=== PATIENT | male | born 1950 | race Caucasian/White ===

== ENCOUNTER → 2023-12-12 07:56 | Outpatient (REF) | payer MEDICARE, SELFPAY ==
[2023-12-12 12:09] LABS: % Basophils 1.1 % (0-2); % Immature Granulocytes 0.9 % (0-0.5); % Monocytes 7.6 % (1.7-9.3); % Neutrophils 38.4 % (42.2-75.2); Absolute Basophils 0.1 10^3/uL (0-0.2); Absolute Eosinophils 0.2 10^3/uL (0-0.7); Absolute Immature Granulocytes 0.1 10^3/uL (0-0.05); Absolute Lymphocytes 2.8 10^3/uL (1.2-3.4); Absolute Monocytes 0.4 10^3/uL (0.1-0.6); Absolute Neutrophils 2.2 10^3/uL (1.4-6.5); Hematocrit 42.9 % (39.0-52.0); Hemoglobin 14.9 g/dL (13.0-18.0); Mean Corp Hgb Conc. 34.7 g/dL (33.0-37.0); Mean Corpuscular Hgb 32.6 pg (27.0-31.0); Mean Corpuscular Volume 93.9 fL (80.0-94.0); Mean Platelet Volume 10.1 fL (7.4-10.4); Nucleated Red Blood Cells % 0 % (-); Platelet Count 227 10^3/uL (130-400); Red Blood Cell Count 4.57 10^6/uL (4.70-6.10); Red Cell Dist. Width 12.5 % (11.5-14.5); White Blood Cell Count 5.7 10^3/uL (4.8-10.8)
[2023-12-12 12:15] LABS: ALT (SGPT) 34 U/L (0-50); AST (SGOT) 46 U/L (17-59); Albumin 4.5 g/dl (3.5-5.0); Alkaline Phosphatase 92 U/L (38-126); Blood Urea Nitrogen 22 mg/dl (9-20); Calcium 10.1 mg/dl (8.4-10.2); Carbon Dioxide 27 mmol/L (22-30); Chloride 104 mmol/L (98-107); Glucose 101 mg/dl (70-99); HDL Cholesterol 76 mg/dl; LDL Cholesterol, Calculated 34 mg/dl; Potassium 4.5 mmol/L (3.5-5.1); Sodium 139 mmol/L (135-145); Total Bilirubin 1.1 mg/dl (0.2-1.3); Total Cholesterol 134 mg/dl (50-199); Triglyceride 124 mg/dl (10-149); Very Low Density Lipoprotein 24 mg/dl (0-30); eGFR > 60.00
[2023-12-12 12:23] LABS: C-Reactive Protein < 5.00 mg/L (0.0-10.00); Glycohemoglobin (HgbA1c) 5.4 % (4.0-5.6)
[2023-12-12 12:54] LABS: TSH Reflex To Free T4 1.83 uIU/ml (0.47-4.68)
== END ==
LOC: HWLAB 07:56
PROVIDERS: ATTENDING PHYSICIAN Nurse Practitioner Family; FAMILY PHYSICIAN Family Medicine
DX: E78.2 Mixed hyperlipidemia (principal); R73.03 Prediabetes; G47.33 Obstructive sleep apnea (adult) (pediatric); E88.810 Metabolic syndrome
CPT/HCPCS: 36415; 80053; 80061; 83036; 84443; 85025; 86140

== ENCOUNTER → 2024-04-24 07:42 | Outpatient (REF) | payer MEDICARE, SELFPAY ==
[2024-04-24 09:46] LABS: % Eosinophils 6.9 % (0-6); % Immature Granulocytes 0.3 % (0-0.5); % Monocytes 10.1 % (1.7-9.3); % Neutrophils 36.7 % (42.2-75.2); Absolute Basophils 0.1 10^3/uL (0-0.2); Absolute Eosinophils 0.4 10^3/uL (0-0.7); Absolute Lymphocytes 2.6 10^3/uL (1.2-3.4); Absolute Monocytes 0.6 10^3/uL (0.1-0.6); Absolute Neutrophils 2.1 10^3/uL (1.4-6.5); Hematocrit 44.1 % (39.0-52.0); Hemoglobin 15.5 g/dL (13.0-18.0); Mean Corp Hgb Conc. 35.1 g/dL (33.0-37.0); Mean Corpuscular Hgb 31.7 pg (27.0-31.0); Mean Corpuscular Volume 90.2 fL (80.0-94.0); Mean Platelet Volume 9.7 fL (7.4-10.4); Nucleated Red Blood Cells % 0 % (-); Platelet Count 206 10^3/uL (130-400); Red Blood Cell Count 4.89 10^6/uL (4.70-6.10); Red Cell Dist. Width 12.7 % (11.5-14.5); White Blood Cell Count 5.8 10^3/uL (4.8-10.8)
[2024-04-24 10:09] LABS: ALT (SGPT) 63 U/L (0-50); AST (SGOT) 63 U/L (17-59); Albumin 4.8 g/dl (3.5-5.0); Alkaline Phosphatase 81 U/L (38-126); Blood Urea Nitrogen 25 mg/dl (9-20); Calcium 10.4 mg/dl (8.4-10.2); Carbon Dioxide 28 mmol/L (22-30); Chloride 105 mmol/L (98-107); Glucose 128 mg/dl (70-99); Magnesium 1.9 mg/dl (1.6-2.3); Potassium 4.5 mmol/L (3.5-5.1); Sodium 145 mmol/L (135-145); Total Bilirubin 1.7 mg/dl (0.2-1.3); Total Cholesterol 172 mg/dl (50-199); Total Protein 7.2 g/dl (6.3-8.2); Triglyceride 72 mg/dl (10-149); Uric Acid 5.5 mg/dl (3.5-8.5); Very Low Density Lipoprotein 14 mg/dl (0-30); eGFR > 60.00
[2024-04-24 10:21] LABS: Free T4 1.01 ng/dl (0.78-2.19)
[2024-04-24 10:23] LABS: HDL Cholesterol 118 mg/dl; LDL Cholesterol, Calculated 40 mg/dl
[2024-04-24 10:36] LABS: TSH 1.69 uIU/ml (0.47-4.68)
[2024-04-24 10:44] LABS: Glycohemoglobin (HgbA1c) 5.4 % (4.0-5.6)
== END ==
LOC: HWLAB 07:42
PROVIDERS: ATTENDING PHYSICIAN Internal Medicine; FAMILY PHYSICIAN Family Medicine
DX: E78.2 Mixed hyperlipidemia (principal); I10 Essential (primary) hypertension; G47.33 Obstructive sleep apnea (adult) (pediatric); R73.03 Prediabetes
CPT/HCPCS: 36415; 80053; 80061; 83036; 83735; 84439; 84443; 84550; 85025

== ENCOUNTER 2024-05-15 09:18 | Emergency (ER) | payer MEDICARE, SELFPAY ==
[2024-05-15 09:23] VITALS: BP 191/95
[2024-05-15] MEDS: TORADOL 30 MG IV (10:06)
--- NOTE | 2024-05-15 10:10 | ED.GENMED ---
History of Present Illness
General
Chief Complaint: Flank Pain
Source: patient and spouse
Exam Limitations: none
Time Seen by Provider: 05/15/24 09:35
Nursing documentation reviewed up to this point in time: agreed with
History of Present Illness
History of Present Illness:
73-year-old male past medical history of hypertension hyperlipidemia presenting to the emergency department today with concerns of right-sided flank and low back discomfort over the past few weeks has slightly worse discomfort with a deep breath.
Denies any changes to urination or bowel movements. Denies significant nausea vomiting or fevers.
Past History
Past History
ED Past Medical History: HTN and Hypercholesterolemia
Social History
Tobacco: Other (Also smokes Cigars 2-3 a week but does not inhale)
Alcohol: Daily (Vodka 2 glasses daily)
Personal:
Living: with family
Review of Systems
Review of Systems
Allergies reviewed?: Yes
All Other Systems: ROS reviewed and negative except as documented in HPI and ROS
Phy Exam
Physical Exam
Physical Exam:
GENERAL: Alert , in no apparent distress
EYE: pupils equal and reactive
NECK: Supple, no significant adenopathy.
ENT: o/p clr, mmm.
CARDIAC: Regular rate and rhythm .
LUNGS: Clear breath sounds bilaterally, no acute respiratory distress, no wheezes/rales/rhonchi
ABDOMEN: Soft, without focal tenderness, no r/g, no cvat
NEUROLOGICAL: Alert and oriented, no focal neuro deficits
SKIN: Warm and dry, skin intact.
MUSCULOSKELETAL: no midline pain of back no edema, well perfused.
PSYCH: Normal and appropriate interaction.
Minimally reproducible discomfort to the right low back
Course
Orders/Labs/Results
Orders:
Orders
05/15/24 10:00
CT Abd/pel Without Iv Or Oral Urgent
Comment:
Reason For Exam: R flank pain
Ketorolac [Toradol] 30 mg IV NOW STA
05/15/24 10:06
Complete Blood Count/With Diff Urgent
Comprehensive Metabolic Panel Urgent
05/15/24 10:40
Urinalysis Reflex To Culture Urgent
Date Specimen was Collected: 05/15/24
Time Specimen was Collected: 10:34
05/15/24 11:05
Acetaminophen [Tylenol] 1,000 mg PO NOW STA
Dexamethasone [Decadron] 10 mg PO NOW STA
Lidocaine [Lidocaine 4% Patch] 1 patch TOPICAL ONCE ONE
Apply Lidocaine patch(s) to:: right low back
05/15/24 11:59
Pt Eval And Treat Urgent
Activity Level: Ambulate
Abnormal Lab Results
05/15/24 05/15/24
10:06 10:40
MCH 33.1 H pg
(27.0-31.0)
Immature Gran % 0.6 H %
(0-0.5)
Carbon Dioxide 21 L mmol/L
(22-30)
BUN 22 H mg/dl
(9-20)
Glucose 149 H mg/dl
(70-99)
Total Bilirubin 1.4 H mg/dl
(0.2-1.3)
Urine Ketones Trace A
(Negative)
05/15/24 10:06
05/15/24 10:06
Vital Signs
Initial and Last Documented VS:
Initial Vital Signs
Temp Pulse Resp BP Pulse Ox
98.3 F 69 20 191/95 97
05/15/24 09:23 05/15/24 09:23 05/15/24 09:23 05/15/24 09:23 05/15/24 09:23
Last Documented Vital Signs
Temp Pulse Resp BP Pulse Ox
98.3 F 78 20 151/82 94
05/15/24 09:23 05/15/24 11:33 05/15/24 11:33 05/15/24 11:33 05/15/24 11:33
MDM/Problems Addressed
MDM/Problems Addressed:
73-year-old male presenting to the emergency department today with concerns of right low back pain right flank pain over the past 2 weeks seems to be worse with movement but some what reproducible to the right lumbar region. . Labs here
unremarkable. CT unremarkable. Patient with likely mechanical back pain given multiple occasions able to ambulate here. Advised for close outpatient follow-up with the back doctor but otherwise return precautions given stable for outpatient
management.
*Critical Care Note
Total Time (30-74mins, 75-104mins- exclusive of procedures): Not Applicable
ED Attending Note
-
Portions of this chart may have been created with voice recognition software.� Occasional wrong word or��sound alike� substitutions may have occurred due to the inherent limitations of voice recognition software.
Discharge Plan
Departure
Patient Disposition: Home (Routine Discharge)
Date of Disposition: 05/15/24
Time of Disposition: 14:26
Patient with high blood pressure during this ER visit?: No
Condition: Good
Covid-19: Not Applicable
Discharge Problem:
Back pain
Instructions: Flank Pain (DC)
Prescriptions:
New
meloxicam 15 mg tablet
15 mg PO DAILY Qty: 10 0RF
prednisone 20 mg tablet
40 mg PO DAILY 3 Days Qty: 6 0RF
oxycodone 5 mg tablet
5 mg PO Q8H PRN (Reason: Pain) Qty: 7 0RF
No Action
sulfamethoxazole-trimethoprim 1 TABLET tablet
1 tab PO BID Qty: 13 0RF
Referrals:
Gurpreet Foster MD [Active] - Follow up in 5-7 days
Renee Valencia MD [Family Provider] -
Activity Restrictions/Additional Instructions:
You came to the emergency department today with concerns of back discomfort. Here you have a reassuring assessment normal CT scan and labs. Please follow closely with the back doctor. Return to the emergency department any worsening, new or
concerning symptoms.
Interventions
Interventions:
*Risk Screen - Suicide Last Done: 05/15/24 09:23
*Neglect/Abuse Screening Last Done: 05/15/24 09:23
*ED COVID-19 Vaccine History Last Done: 05/15/24 09:23
[facility]-Djyeyx-Uxtpryavde Assessment Last Done: 05/15/24 10:42
ED-Male Genitourinary Assessment Last Done: 05/15/24 10:42
Discharge Date and Time
Print Language: KAZAKH
[2024-05-15 10:20] LABS: White Blood Cell Count 5.2 10^3/uL (4.8-10.8)
[2024-05-15 10:21] LABS: % Basophils 0.8 % (0-2); % Eosinophils 2.5 % (0-6); % Lymphocytes 26.9 % (20.5-51.1); % Neutrophils 61.2 % (42.2-75.2); Hematocrit 45.3 % (39.0-52.0); Hemoglobin 16.3 g/dL (13.0-18.0); Mean Corpuscular Hgb 33.1 pg (27.0-31.0); Mean Corpuscular Volume 91.9 fL (80.0-94.0); Mean Platelet Volume 9.7 fL (7.4-10.4); Platelet Count 216 10^3/uL (130-400); Red Blood Cell Count 4.93 10^6/uL (4.70-6.10); Red Cell Dist. Width 12.6 % (11.5-14.5)
[2024-05-15 10:22] LABS: % Immature Granulocytes 0.6 % (0-0.5); Absolute Eosinophils 0.1 10^3/uL (0-0.7); Absolute Lymphocytes 1.4 10^3/uL (1.2-3.4); Absolute Monocytes 0.4 10^3/uL (0.1-0.6); Absolute Neutrophils 3.2 10^3/uL (1.4-6.5); Nucleated Red Blood Cells % 0 % (-)
[2024-05-15 10:36] VITALS: BMI 35.9
[2024-05-15 10:41] VITALS: BP 165/92
[2024-05-15 10:44] LABS: ALT (SGPT) 49 U/L (0-50); AST (SGOT) 55 U/L (17-59); Albumin 4.9 g/dl (3.5-5.0); Alkaline Phosphatase 85 U/L (38-126); Blood Urea Nitrogen 22 mg/dl (9-20); Carbon Dioxide 21 mmol/L (22-30); Chloride 103 mmol/L (98-107); Estimated Creatinine Clearance 117 ml/min; Glucose 149 mg/dl (70-99); Potassium 4.4 mmol/L (3.5-5.1); Sodium 140 mmol/L (135-145); Total Bilirubin 1.4 mg/dl (0.2-1.3); Total Protein 7.4 g/dl (6.3-8.2); eGFR > 60.00
[2024-05-15 10:49] LABS: Urine Albumin Trace (Neg - Trace); Urine Bilirubin Negative (Negative); Urine Character Clear (Clear); Urine Color Yellow; Urine Glucose Negative (Negative); Urine Ketone Trace (Negative); Urine Leukocyte Negative (Negative); Urine Nitrite Negative (Negative); Urine Occult Blood Negative (Negative); Urine Specific Gravity 1.015 (<1.030); Urine Urobilinogen Negative (Neg - 1+); Urine pH 6.5 (5.0-9.0)
[2024-05-15] MEDS: LIDOCAINE 4% PATCH 1 PATCH TOPICAL (11:26)
[2024-05-15] MEDS: DECADRON 10 MG PO (11:29)
[2024-05-15] MEDS: TYLENOL 1000 MG PO (11:29)
[2024-05-15 11:33] VITALS: BP 151/82
[2024-05-15 14:04] VITALS: O2SAT 98
--- NOTE | 2024-05-15 14:05 | CM ---
CM met with patient and in room. Patient is agreeable to [facility]. [facility] gluing pressman made aware of new referral. CM updated bedside RN and ED PA.
--- NOTE | 2024-05-15 15:38 | VNURNOTE ---
Home Health Liaison spoke with patient to discuss [facility] nurse/therapy, visits, schedule and homebound status. Patient is agreeable and understands that visits at home will be 2-3 x per week for PT, OT. Patient declining home nurses despite new meds
prescribed. Patient is aware that [facility] will contact them for start of care in 1-2 days after discharge from .
[facility] referral completed in [facility].
== END 2024-05-15 14:46 | disposition home or self-care (01) ==
LOC: EMR 09:18
PROVIDERS: Physician Assistant; EMERGENCY PHYSICIAN Emergency Medicine; FAMILY PHYSICIAN Family Medicine
DX: M54.9 Dorsalgia, unspecified (principal); I10 Essential (primary) hypertension; E78.00 Pure hypercholesterolemia, unspecified; F17.290 Nicotine dependence, other tobacco product, uncomplicated
CPT/HCPCS: 96374; 99284; 74176; 80053; 81003; 85025

== ENCOUNTER → 2024-11-19 08:07 | Outpatient (REF) | payer MEDICARE, SELFPAY ==
[2024-11-19 09:57] LABS: % Basophils 1.3 % (0-2); % Eosinophils 3.1 % (0-6); % Immature Granulocytes 0.5 % (0-0.5); % Lymphocytes 44.4 % (20.5-51.1); % Monocytes 10.3 % (1.7-9.3); % Neutrophils 40.4 % (42.2-75.2); Absolute Basophils 0.1 10^3/uL (0-0.2); Absolute Eosinophils 0.2 10^3/uL (0-0.7); Absolute Lymphocytes 2.5 10^3/uL (1.2-3.4); Absolute Monocytes 0.6 10^3/uL (0.1-0.6); Absolute Neutrophils 2.3 10^3/uL (1.4-6.5); Hematocrit 46.4 % (39.0-52.0); Hemoglobin 16.1 g/dL (13.0-18.0); Mean Corp Hgb Conc. 34.7 g/dL (33.0-37.0); Mean Corpuscular Hgb 31.8 pg (27.0-31.0); Mean Corpuscular Volume 91.7 fL (80.0-94.0); Mean Platelet Volume 10.2 fL (7.4-10.4); Nucleated Red Blood Cells % 0 % (-); Platelet Count 210 10^3/uL (130-400); Red Blood Cell Count 5.06 10^6/uL (4.70-6.10); Red Cell Dist. Width 12.6 % (11.5-14.5); White Blood Cell Count 5.6 10^3/uL (4.8-10.8)
[2024-11-19 11:21] LABS: Glycohemoglobin (HgbA1c) 5.3 % (4.0-5.6)
[2024-11-19 12:00] LABS: ALT (SGPT) 47 U/L (0-50); AST (SGOT) 48 U/L (17-59); Albumin 4.6 g/dl (3.5-5.0); Alkaline Phosphatase 70 U/L (38-126); Blood Urea Nitrogen 23 mg/dl (9-20); Calcium 9.8 mg/dl (8.4-10.2); Carbon Dioxide 26 mmol/L (22-30); Chloride 110 mmol/L (98-107); Glucose 118 mg/dl (70-99); HDL Cholesterol 94 mg/dl; LDL Cholesterol, Calculated 56 mg/dl; Potassium 4.5 mmol/L (3.5-5.1); Sodium 141 mmol/L (135-145); Total Bilirubin 1.8 mg/dl (0.2-1.3); Total Cholesterol 160 mg/dl (50-199); Total Protein 7.3 g/dl (6.3-8.2); Triglyceride 54 mg/dl (10-149); Very Low Density Lipoprotein 10 mg/dl (0-30); eGFR > 60.00
[2024-11-19 12:02] LABS: Free T4 1.38 ng/dl (0.78-2.19)
[2024-11-19 12:16] LABS: TSH 1.92 uIU/ml (0.47-4.68)
== END ==
LOC: HWLAB 08:07
PROVIDERS: ATTENDING PHYSICIAN Nurse Practitioner; FAMILY PHYSICIAN Family Medicine; REFERRING PHYSICIAN Internal Medicine
DX: E66.01 Morbid (severe) obesity due to excess calories (principal); E78.2 Mixed hyperlipidemia; I10 Essential (primary) hypertension; G47.33 Obstructive sleep apnea (adult) (pediatric); R73.03 Prediabetes
CPT/HCPCS: 36415; 80053; 80061; 83036; 84439; 84443; 85025

== ENCOUNTER 2025-02-17 06:19 | Day surgery (SDC) | payer MEDICARE, SELFPAY | END 2025-02-17 08:31 | disposition home or self-care (01) | LOC: GI 06:19 | PROVIDERS: ATTENDING PHYSICIAN Internal Medicine Gastroenterology | DX: Z12.11 Encounter for screening for malignant neoplasm of colon (principal); K57.30 Diverticulosis of large intestine without perforation or abscess without bleeding; K64.8 Other hemorrhoids; D12.2 Benign neoplasm of ascending colon; D12.5 Benign neoplasm of sigmoid colon; K63.5 Polyp of colon; Z86.0100 Personal history of colon polyps, unspecified | CPT/HCPCS: 45385; 45380; 88305 ==

== ENCOUNTER → 2025-04-09 09:17 | Outpatient (REF) | payer MEDICARE, SELFPAY | LOC: HWRAD 09:17 | PROVIDERS: ATTENDING PHYSICIAN Family Medicine; OTHER PHYSICIAN Internal Medicine; REFERRING PHYSICIAN Internal Medicine Cardiovascular Disease | DX: K76.0 Fatty (change of) liver, not elsewhere classified (principal) | CPT/HCPCS: 76700 ==

== ENCOUNTER → 2025-04-17 08:03 | Outpatient (REF) | payer MEDICARE, SELFPAY ==
[2025-04-17 09:21] LABS: Hematocrit 47.5 % (39.0-52.0); Hemoglobin 16.5 g/dL (13.0-18.0); Mean Corp Hgb Conc. 34.7 g/dL (33.0-37.0); Mean Corpuscular Volume 92.2 fL (80.0-94.0); Nucleated Red Blood Cells % 0 % (-); Platelet Count 233 10^3/uL (130-400); Red Cell Dist. Width 12.2 % (11.5-14.5)
[2025-04-17 09:54] LABS: ALT (SGPT) 68 U/L (0-50); AST (SGOT) 66 U/L (17-59); Albumin 5.1 g/dl (3.5-5.0); Alkaline Phosphatase 102 U/L (38-126); Blood Urea Nitrogen 14 mg/dl (9-20); Calcium 9.8 mg/dl (8.4-10.2); Carbon Dioxide 25 mmol/L (22-30); Chloride 107 mmol/L (98-107); Glucose 99 mg/dl (70-99); HDL Cholesterol 102 mg/dl; Magnesium 1.9 mg/dl (1.6-2.3); Potassium 4.3 mmol/L (3.5-5.1); Sodium 141 mmol/L (135-145); Total Protein 8.0 g/dl (6.3-8.2); Uric Acid 5.2 mg/dl (3.5-8.5); eGFR > 60.00
[2025-04-17 09:56] LABS: LDL Cholesterol, Calculated 39 mg/dl; Very Low Density Lipoprotein 24 mg/dl (0-30)
[2025-04-17 10:46] LABS: Glycohemoglobin (HgbA1c) 5.1 % (4.0-5.6)
== END ==
LOC: HWLAB 08:03
PROVIDERS: ATTENDING PHYSICIAN Nurse Practitioner Family; FAMILY PHYSICIAN Family Medicine; REFERRING PHYSICIAN Internal Medicine Cardiovascular Disease
DX: E78.2 Mixed hyperlipidemia (principal); G47.33 Obstructive sleep apnea (adult) (pediatric); R73.03 Prediabetes; E88.810 Metabolic syndrome
CPT/HCPCS: 36415; 80053; 80061; 83036; 83735; 84443; 84550; 85025

== ENCOUNTER → 2025-04-25 08:07 | Outpatient (REF) | payer MEDICARE, SELFPAY | LOC: RAD 08:07 | PROVIDERS: ATTENDING PHYSICIAN Family Medicine; OTHER PHYSICIAN Internal Medicine; OTHER PHYSICIAN Internal Medicine Cardiovascular Disease | DX: Z13.6 Encounter for screening for cardiovascular disorders (principal) | CPT/HCPCS: 76770 ==